=== PATIENT | male | born 1935 | race American Indian/Alaskan Native ===

== ENCOUNTER 2017-07-06 12:40 | Outpatient (CLI) | payer MEDICARE, OTHER ==
--- NOTE | 2017-07-06 15:15 | Cat Scan Report ---
CT scan of abdomen and pelvis without IV contrast: Compared to 08/08/13. History: Hematuria. Findings: Normal lung bases. Minimal bilateral pleural effusion. Cyst in the left lobe of the liver appears unchanged. No intrahepatic duct dilatation. Normal pancreas. Gallbladder not visualized. Normal spleen. Normal adrenals. Multiple cysts right and left kidney without interval change. No calculi the kidney parenchyma. Right PICC perirenal stranding. The ureter is not optimally visualized. There is mild dilatation noted of the right ureter. Left ureter is not optimally visualized and grossly appears unremarkable. There is large calculus measuring 1.4 cm in diameter noted within the bladder. No significant bladder wall thickening. Perirectal stranding without thickening of the rectal wall. Prostatic calcification/calculus centrally located measuring 1.8 x 0.7 cm. Gaseous colon with moderate to large volume of stool in colon. The appendix is not optimally visualized though no obvious evidence of appendicitis. Diverticulosis without definite evidence of diverticulitis. Impression: Large bladder calculus with probably prostatic calculus. Perirenal stranding the right kidney with mild dilatation of right ureter probably related to recent passage of calculus. Stable liver cyst and multiple bilateral kidney cysts.
== END 2017-07-06 12:41 | disposition home or self-care (01) ==
LOC: CT 12:40
PROVIDERS: ATTEND Internal Medicine
DX: N28.1 Cyst of kidney, acquired (principal); N20.1 Calculus of ureter; K76.89 Other specified diseases of liver; J90 Pleural effusion, not elsewhere classified; K57.30 Diverticulosis of large intestine without perforation or abscess without bleeding; N28.82 Megaloureter
CPT/HCPCS: 74176